=== PATIENT | female | born 2000 | race Caucasian/White ===

== ENCOUNTER 2022-07-11 05:36 | Emergency (ER) | payer BC ==
[~2022-07-11] VITALS: Ht 157.5 cm; Wt 50.0 kg
[2022-07-11] MEDS ORDERED: NORGESTIMATE-E1 EAC1 PO (05:56)
[2022-07-11] MEDS ORDERED: BUSPIRONE HCL5 MG PO (05:56)
[2022-07-11] MEDS ORDERED: LAMOTRIGINE100 MG PO (05:56)
[2022-07-11] MEDS ORDERED: CLEOCIN HCL300 MG PO (06:29)
== END 2022-07-11 06:40 | disposition home or self-care (01) ==
LOC: ED 05:36
DX: J32.9 Chronic sinusitis, unspecified (principal); Z88.0 Allergy status to penicillin; Z79.899 Other long term (current) drug therapy
CPT/HCPCS: 70450; 84703; 96374; 96375; 99284-25; J1885; J2405